=== PATIENT | female | born 1955 | race African-American/Black ===

== ENCOUNTER 2021-05-21 12:12 | Emergency (ER) | payer MEDICAID ==
[~2021-05-21] VITALS: Ht 162.6 cm; Wt 71.0 kg
[2021-05-21] MEDS ORDERED: ACETAMINOPHEN 325MG TABLET PO STA (13:31)
[2021-05-21] MEDS ORDERED: NAPR-681 PO (14:57)
[2021-05-21] MEDS ORDERED: CYCL5TAB PO (14:57)
[2021-05-21 15:12] VITALS: BP 125/67
== END 2021-05-21 15:14 | disposition home or self-care (01) ==
LOC: ER 12:12
DX: S16.1XXA Strain of muscle, fascia and tendon at neck level, initial encounter (principal); M25.532 Pain in left wrist; M79.645 Pain in left finger(s); V49.49XA Driver injured in collision with other motor vehicles in traffic accident, initial encounter; Y93.89 Activity, other specified; Y92.488 Other paved roadways as the place of occurrence of the external cause
CPT/HCPCS: 29125; 73110; 73130; 99284